=== PATIENT | male | born 1975 | race Caucasian/White ===

== ENCOUNTER → 2025-02-16 13:57 | Outpatient (CLI) | payer BC, SELFPAY ==
[2025-02-16 19:42] LABS: Add Manual Diff / Slide Review NO; Hematocrit 42.2 % (41-53); Hemoglobin 14.9 g/dL (13.5-17.5); Lymphocytes Absolute Auto 2300 /uL (1100-4500); Mean Corpuscular HGB Conc 35.3 % (30-36); Mean Corpuscular Hemoglobin 29.6 PG (26-34); Mean Corpuscular Volume 83.6 fL (80-100); Platelet Count 219 X10^3/uL (150-400)
[2025-02-16 19:54] LABS: Alanine Aminotransferase 37 IU/L (<50); Albumin 4.5 g/dL (3.5-5.0); Albumin Globulin Ratio 1.5 (1.0-2.8); Alkaline Phosphatase 78 U/L (38-126); Blood Urea Nitrogen 14 mg/dL (9-20); Calcium 9.4 mg/dL (8.4-10.2); Carbon Dioxide 26 mmol/L (22-32); Chloride 102 mmol/L (98-107); Cholesterol 190 mg/dL (140-199); Estimated Glomerular Filt Rate > 60 mL/min (>60); Globulin 3.1 g/dL (1.7-4.1); Glucose 87 mg/dL (70-99); HDL Cholesterol 41 mg/dL (40-60); HEMOLYSIS < 15 (0-50); Potassium 4.2 mmol/L (3.4-5.1); Sodium 137 mmol/L (137-145); Total Protein 7.6 g/dL (6.3-8.2); Triglycerides 195 mg/dL (35-150)
[2025-02-16 20:00] LABS: Hemoglobin A1C% w Est Avg Glu 5.8 % (4.0-6.0)
[2025-02-16 20:22] LABS: Thyroid Stimulating Hormone 2.64 uIU/mL (0.47-4.68)
== END ==
PROVIDERS: PCP Family Medicine; Visit Provider Family Medicine
DX: R03.0 Elevated blood-pressure reading, without diagnosis of hypertension (principal); Z13.6 Encounter for screening for cardiovascular disorders; M24.9 Joint derangement, unspecified; M25.462 Effusion, left knee; M25.562 Pain in left knee; G89.29 Other chronic pain; M54.9 Dorsalgia, unspecified
CPT/HCPCS: 80053; 80061; 83036; 84443; 85025; 85651; 86038; 86140; 86200; 86430

== ENCOUNTER 2025-07-01 07:33 | Day surgery (SDC) | payer BC, SELFPAY ==
[2025-06-21 09:46] VITALS: BMI 37.9
--- NOTE | 2025-07-01 | PATH_ITS ---
[facility] Accession Number: [id number] No. of containers..02 Tissue . 01 Material submitted: . PART A: colon - COLON, ASCENDING POLYPS PART B: rectum - RECTAL POLYP . 01 Diagnosis: Part A: COLON, ASCENDING POLYPS: Tubular adenomas. . Part B: RECTAL POLYP: Tubular adenoma. [facility] 07/06/2025 130 Local . 01 Electronically signed: . Bossman Avila MD, Pathologist NPI- [id number] . 01 Gross description: . A. Received in formalin labeled with two patient identifiers and ascending polyps, are four su tissue fragments ranging from 0.3 to 0.6 cm. Entirely submitted in cassette A1. . B. Received in formalin labeled with two patient identifiers and rectal polyp, is a 0.3 cm su tissue fragment. Entirely submitted in cassette B1. ([id number]) /ROSA 07/06/20257 Local . 01 Pathologist provided ICD-10: D12.2, D12.8 . 01 CPT . 300915, 696405 Specimen Comment: A courtesy copy of this report has been sent to [phone] Performed at: [address] [address], [place], [place] [id number] MD Bossman Avila MD Phone: [phone]
[2025-07-01 08:04] VITALS: BP 145/86; PULSE 85; RESP 24; TEMP 36.2; O2SAT 95
--- NOTE | 2025-07-01 08:40 | P.HP_ITS ---
History of Present Illness History of Present Illness Date Patient Seen: 07/01/25 Time Patient Seen: 08:41 Chief complaint: Colonoscopy Narrative: Herbert is a 49-year-old man here for his first screening colonoscopy. No known family history of colon cancer. [facility] Medical History (Updated 03/28/25 @ 20:11 by Edwige Taylor MD) Chronic back pain Hypermobility of joint Knee effusion Surgical History (Updated 01/24/25 @ 17:58 by Edwige Taylor MD) S/P orchiectomy Social History Smoking Status: Former smoker alcohol intake: current additional social history: PMHX: hypermobility chronic back pain lumbar R knee injuries PSHx: left oriectomy - torsion wisdom teeth all: nkda FHX: MGM DM, lung cancer M breast cancer PGF 50 yo [place] dad: cholesterol and BP medication BR -- migraines OI : lived here 9 yrs lives with and cat tob: none etoh: 2-3 times/week exercise: active at work 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[employer] [place] 12/2024 Meds Home Medications and Allergies Allergies Allergy/AdvReac Type Severity Reaction Status Date / Time No Known Drug Allergies Allergy Verified 07/01/25 07:59 Exam Vital Signs (past 8 hours): - 07/01/25 08:04 Temperature 97.1 F L Pulse Rate 85 Respiratory Rate 24 Blood Pressure 145/86 H Pulse Oximetry 95 Oxygen Delivery Method Room Air Oxygen Delivery Method Room Air Const General: healthy appearing Assessment & Plan Assessment and plan (1) Colon cancer screening: Status: Acute Plan Colonoscopy Time-Based Coding :: [TOTAL MINUTES] spent with patient and on the chart (including review of chart, obtaining history, exam, reviewing outside data, placing orders, documenting exam and treatment plan, and counseling patient) on [DATE]. [employer] Database Coordinator Document charge(s): No
[2025-07-01] MEDS: LACTATED RINGERS 1,000 ML 42 ML IV (08:50)
--- NOTE | 2025-07-01 09:14 | PM.OP.COLON ---
Operative Date/Time/Diagnoses Date of procedure: 07/01/25 Time of procedure: 09:14 Pre-op diagnosis: Colon cancer screening Post-op diagnosis: same Procedure & Clinicians Study performed: Colonoscopy Same procedure(s) as scheduled: Yes Surgeon: Young Walls Anesthesia Type: MAC +/- Procedure Notes Procedure in detail: Surgeon: Young Walls MD Anesthesia: Britney Roth D.O., CRNA Procedure: The patient was brought to the endoscopy suite, placed in left lateral decubitus position. The patient was connected to monitoring devices. A time-out was performed. Sedation was administered. Once the patient was adequately sedated, a digital rectal exam was performed and was normal. The scope was then inserted and advanced to the cecum where the appendiceal orifice was identified and photographed. The scope was then slowly withdrawn over greater than 6 minutes. The mucosa was thoroughly inspected. There was polyp or possibly a contiguous cluster of multiple small polyps in the ascending colon removed with a cold snare in multiple passes and sent together as ascending colon polyps. There was a 3 mm polyp in the rectum removed with a cold snare. The scope was retroflexed in the rectum. The scope was straightened and removed. The patient was awakened and brought to recovery. Scope withdrawal time: 12 minutes Sedation time: 18 minutes Findings: Cluster of small contiguous polyps in the ascending colon, 3 mm polyp in the rectum Estimated Blood Loss: 5 Complications: none Post-procedure Disposition: PACU
[2025-07-01 09:15] VITALS: BP 116/75; PULSE 75; RESP 16; TEMP 36.5; O2SAT 96
[2025-07-01 09:19] VITALS: BP 113/69; PULSE 80; RESP 20; TEMP 36.7; O2SAT 98
[2025-07-01 09:34] VITALS: BP 130/69; PULSE 71; RESP 20; O2SAT 98
== END 2025-07-01 09:50 | disposition home or self-care (01) ==
PROVIDERS: PCP Family Medicine; Referring Provider Family Medicine; Visit Provider Surgery
PROC: 0DJD8ZZ Inspection of Lower Intestinal Tract, Via Natural or Artificial Opening Endoscopic (ICD-10-PCS; CPT 45378; principal; 2025-07-01 08:45)
DX: Z12.11 Encounter for screening for malignant neoplasm of colon (principal); Z87.891 Personal history of nicotine dependence; D12.2 Benign neoplasm of ascending colon; D12.8 Benign neoplasm of rectum
CPT/HCPCS: 45385; J2704; J7120